=== PATIENT | female | born 1945 | race Caucasian/White ===

== ENCOUNTER 2016-10-28 11:39 | Outpatient (CLI) | payer MEDICARE, OTHER | END 2016-10-28 11:40 | disposition home or self-care (01) | DX: M50.31 Other cervical disc degeneration, high cervical region (principal); M47.892 Other spondylosis, cervical region; M51.34 Other intervertebral disc degeneration, thoracic region ==

== ENCOUNTER 2017-04-18 10:13 | Outpatient (CLI) | payer MEDICARE, OTHER ==
--- NOTE | 2017-04-19 13:11 | Mammography Report ---
DIGITAL SCREENING MAMMOGRAM: 04/18/2017 CLINICAL INDICATION: A 71-year-old with personal history of right breast cancer status post mastecto my, chemoradiation, and TRAM flap reconstruction, history of benign left breast biopsy. COMPARISON: 05/2015, 05/2014, 05/2013, 03/2012. TECHNIQUE: Routine CC and MLO projections were obtained of the breasts. FINDINGS: Postoperative changes of right mastectomy and TRAM flap reconstruction are stable. The le ft breast demonstrates scattered fibroglandular densities. Postbiopsy changes are stable. No suspic ious masses, clustered microcalcifications, or regions of architectural distortion are identified. IMPRESSION: BENIGN FINDINGS. RECOMMENDATION: Routine annual screening unless otherwise clinically indicated. BI-RADS category 2, benign findings. STANDARD QUALIFYING STATEMENTS 1. This examination was reviewed with the aid of Computer-Aided Detection (CAD). 2. A negative or benign imaging report should not delay biopsy if clinically suspicious findings are present. Consider surgical consultation if warranted. More than 5% of cancers are not identified by i maging. 3. Dense breasts may obscure an underlying neoplasm. JOB #: [id number] EXT JOB #:[id number]
== END 2017-04-18 10:14 | disposition home or self-care (01) ==
LOC: DI 10:13
PROVIDERS: ATTEND Physician Assistant
DX: Z12.31 Encounter for screening mammogram for malignant neoplasm of breast (principal); Z90.11 Acquired absence of right breast and nipple
CPT/HCPCS: 77067

== ENCOUNTER 2020-01-02 13:33 | Outpatient (CLI) | payer MEDICARE, OTHER ==
--- NOTE | 2020-01-03 09:50 | Mammography Report ---
BILATERAL DIGITAL SCREENING MAMMOGRAM 3D/2D: 01/02/2020 CLINICAL: Routine screening. Personal history of bilateral breast cancer. Comparison is made to exams dated: 04/18/2017 mammogram, 05/27/2015 mammogram, and 06/19/2014 mammogra m - [facility]. The tissue of both breasts is predominantly fatty. There is a benign post surgical scar in both breasts. There is a focal asymmetry in the right breast at 12 o'clock posterior depth. No other significant masses, calcifications, or other findings are seen in either breast. IMPRESSION: INCOMPLETE: NEEDS ADDITIONAL IMAGING EVALUATION The focal asymmetry in the right breast is indeterminate. Additional views with possible ultrasound are recommended. This exam was interpreted at Station ID: [id number]. NOTE: For mammograms, a report in lay terms will be sent to the patient. Approximately 15% of breast malignancies will not be visualized mammographically. In the management of a palpable breast mass, a negative mammogram must not discourage biopsy of a clinically suspicious lesion. Electronically Signed By: Mary Teran M.D. lk/:01/02/2020 15:10:47 ACR BI-RADS Category 0: Incomplete 3340F PARENCHYMAL PATTERN: (F) - The breast(s) demonstrate(s) diffuse fatty replacement. BI-RADS CATEGORY: (0) - 0 Mammo and [place] [id number] Immediate follow-up LATERALITY: (B)
== END 2020-01-02 13:34 | disposition home or self-care (01) ==
LOC: DI 13:33
PROVIDERS: ATTEND Physician Assistant
DX: R92.8 Other abnormal and inconclusive findings on diagnostic imaging of breast (principal); Z85.3 Personal history of malignant neoplasm of breast
CPT/HCPCS: 77063; 77067

== ENCOUNTER 2020-03-21 11:22 | Day surgery (SDC) | payer MEDICARE, OTHER ==
[2020-03-21] MEDS ORDERED: LACTATED RINGERS 1,000 ML IV ONE ×2 (11:27→14:31)
[2020-03-21] MEDS ORDERED: fentaNYL 250 MCG/5 ML VIAL IVP ONE (13:19)
[2020-03-21] MEDS ORDERED: MIDAZOLAM 2 MG/2 ML VIAL IVP ONE (13:19)
[2020-03-21 15:22] VITALS: BP 118/60
== END 2020-03-21 11:23 | disposition home or self-care (01) ==
LOC: SDS 11:22
PROVIDERS: ATTEND Surgery
PROC: 0DBM8ZZ Excision of Descending Colon, Via Natural or Artificial Opening Endoscopic (ICD-10-PCS; principal; 2020-03-21 12:30)
DX: Z12.11 Encounter for screening for malignant neoplasm of colon (principal); K63.89 Other specified diseases of intestine
CPT/HCPCS: 45380; J3010; J7120

== ENCOUNTER 2021-11-02 10:52 | Outpatient (CLI) | payer MEDICARE, OTHER ==
[2021-11-02 14:46] LABS: BASOPHILS # (AUTO) 0.1 10^3/uL (0.0-0.1); BASOPHILS % (AUTO) 0.6 %; EOSINOPHILS # (AUTO) 0.2 10^3/uL (0.0-0.7); HGB - HEMOGLOBIN 13.5 g/dL (12.0-16.0); LYMPHOCYTES # (AUTO) 1.7 10^3/uL (1.5-3.5); LYMPHOCYTES % (AUTO) 21.3 %; MEAN CORPUSCULAR HEMOGLOBIN 32.1 pg (27.0-31.0); MEAN CORPUSCULAR HGB CONC 32.1 g/dL (32.0-36.0); MEAN PLATELET VOLUME 11.8 fL (7.9-10.8); MONOCYTES # (AUTO) 0.5 10^3/uL (0.0-1.0); MONOCYTES % (AUTO) 5.8 %; NEUTROPHILS # (AUTO) 5.6 10^3/uL (1.5-6.6); NEUTROPHILS % (AUTO) 70.1 %; PLT - PLATELET COUNT 282 10^3/uL (130-450); RED CELL DISTRIBUTION WIDTH 14.5 % (12.0-15.0)
[2021-11-02 15:02] LABS: ALBUMIN 4.4 g/dL (3.2-5.5); ALBUMIN/GLOBULIN RATIO 1.4 (1.0-2.2); ALKALINE PHOSPHATASE 39 IU/L (42-121); ALT ALANINE AMINOTRANSFERASE 17 IU/L (10-60); AST ASPARTATE AMINOTRANSFERASE 21 IU/L (10-42); BILIRUBIN,TOTAL 1.1 mg/dL (0.2-1.0); BUN - BLOOD UREA NITROGEN 16 mg/dL (6-20); CALCIUM 9.3 mg/dL (8.5-10.3); CARBON DIOXIDE - CO2 26 mmol/L (21-32); CHLORIDE 105 mmol/L (101-111); CHOL/HDL RATIO 3.5 (<4.4); CHOLESTEROL 169 mg/dL; CREATININE 0.8 mg/dL (0.4-1.0); GFR - MDRD 70 (>89); GLUCOSE 90 mg/dL (70-100); HDL CHOLESTEROL 48 mg/dL; LDL CHOLESTEROL,CALCULATED 88 mg/dL; LDL/HDL RATIO 1.8 (<4.4); POTASSIUM 4.2 mmol/L (3.5-5.0); SODIUM 141 mmol/L (135-145); TOTAL PROTEIN 7.6 g/dL (6.7-8.2); TRIGLYCERIDES 163 mg/dL; VLDL CHOLESTEROL 33 mg/dL
== END 2021-11-02 10:53 | disposition home or self-care (01) ==
LOC: LAB.S 10:52
PROVIDERS: ATTEND Physician Assistant
DX: Z00.00 Encounter for general adult medical examination without abnormal findings (principal); M85.80 Other specified disorders of bone density and structure, unspecified site; Z13.1 Encounter for screening for diabetes mellitus; Z13.220 Encounter for screening for lipoid disorders
CPT/HCPCS: 36415; 80053; 80061; 82306; 83721; 85025

== ENCOUNTER 2022-11-18 14:10 | Outpatient (CLI) | payer MEDICARE ==
--- NOTE | 2022-11-18 15:03 | DEXA Report ---
PROCEDURE: Dexa Spine and/or Hip INDICATIONS: OSTEOPENIA TECHNIQUE: Dual energy x-ray absorptiometry (DXA) was performed on a [employer]. Regions measur ed are the AP Spine, femoral neck, and if needed forearm. COMPARISON: None. FINDINGS: Lumbar Spine: Bone Mineral Density 0.907 g/cm/cm,T score -2.3, osteopenia. Left Femoral Neck: Bone Mineral Density 0.843 g/cm/cm, T score -1.4, osteopenia. Left Hip: Bone Mineral Density 0.982 g/cm/cm,T score -0.2, normal. (T score greater or equal to -1.0: NORMAL) (T score from -1.1 to -2.4: OSTEOPENIA) (T score less than or equal to -2.5 to: OSTEOPOROSIS) Impression: Osteopenia. Patients with diagnosis of osteoporosis or osteopenia should have regular bone mineral density assess ment. For those eligible for Medicare, routine testing is allowed once every 2 years. Testing frequ ency can be increased for patients who have rapidly progressing disease or for those who are receivin g medical therapy to restore bone mass. Reviewed by: Jac Celis on 11/18/2022 3:02 PM PDT Approved by: Jac Celis on 11/18/2022 3:02 PM PDT Station ID: [id number]
== END 2022-11-18 14:11 | disposition home or self-care (01) ==
LOC: DI 14:10
PROVIDERS: ATTEND Nurse Practitioner Family
DX: M85.89 Other specified disorders of bone density and structure, multiple sites (principal)

== ENCOUNTER 2023-06-28 12:33 | Outpatient (CLI) | payer MEDICARE ==
[2023-06-28 14:47] LABS: ALBUMIN 4.4 g/dL (3.2-5.5); ALBUMIN/GLOBULIN RATIO 1.7 (1.0-2.2); BILIRUBIN,TOTAL 0.9 mg/dL (0.2-1.0); POTASSIUM 4.9 mmol/L (3.5-4.5)
== END 2023-06-28 12:34 | disposition home or self-care (01) ==
LOC: LAB.S 12:33
PROVIDERS: ATTEND Nurse Practitioner Family
DX: R19.00 Intra-abdominal and pelvic swelling, mass and lump, unspecified site (principal)
CPT/HCPCS: 36415; 80053

== ENCOUNTER 2023-07-05 08:07 | Outpatient (CLI) | payer MEDICARE ==
[2023-07-05] MEDS ORDERED: DIATR MEGLU/DIATRIZOATE SODIUM 120 ML BOTTLE ONE (08:12)
[2023-07-05] MEDS ORDERED: DIATRIZOATE MEGLU/DIATRIZO SOD 30 ML BOTTLE PO ONE (09:41)
[2023-07-05] MEDS ORDERED: iohexoL-300 100 ML VIAL IVP ONE (09:41)
--- NOTE | 2023-07-05 11:06 | CT Report ---
PROCEDURE: ABDOMEN/PELVIS W INDICATIONS: ABD MASS, HERNIA CONTRAST: 100ml omni 300 TECHNIQUE: After the administration of IV and oral contrast, 5 mm thick sections acquired from the diaphragms to the symphysis. 5 mm thick coronal and sagittal reformats were acquired. For radiation dose reducti on, the following was used: automated exposure control, adjustment of mA and/or kV according to chloe ent size. COMPARISON: None FINDINGS: Image quality: Good Lower chest: Lung bases appear unremarkable. No pleural effusions. Suspected basal atelectasis. Suspe cted bilateral small Bochdalek's hernias. No hiatal hernia. Normal heart size. Solid organs: Possible hepatic steatosis. Cholelithiasis. No suspicious pancreatic or biliary ductal dilation. A small duodenal diverticulum is seen adjacent to the ampulla. No splenomegaly. Right adren al thickening versus small nodule. A left adrenal nodule is seen measuring up to 2 cm. No suspicious renal lesions or hydronephrosis. Vessels and lymph nodes: The main portal vein appears patent. No suspicious abdominal or pelvic lymph adenopathy by size criteria. No abdominal aortic aneurysm. There are atherosclerotic calcifications. Bowel and peritoneum: No evidence of small bowel obstruction. No pathologic ascites. There are coloni c diverticula, without evidence of acute inflammation by CT. The appendix is is mildly dilated at 8 t o 9 mm (5/31). There is minimal questionable surrounding fat stranding. No abscess. Body wall: In the upper midline abdominal wall, there is a fat-containing ventral hernia with neck me asuring 1 cm, and an internal calcification. Another small fat-containing umbilical hernia is suspect ed to be present. Pelvis: Bladder is unremarkable. Reproductive organs are not well evaluated on this study, overall un remarkable. Bones: There are degenerative changes, no acute or suspicious findings. Vertebral suspected hemangiom a. L5 pars defects, chronic appearing, with anterolisthesis. IMPRESSION: Right lower quadrant minimal fat stranding and mildly dilated appendix. Please correlate for any righ t lower quadrant pain. This could represent acute appendicitis without abscess. Ventral hernias as described above, the upper abdominal hernia contains fat and a small calcification . Consider correlation with ultrasound for dynamic assessment if indicated. No bowel obstruction. Other findings as above. Reviewed by: Javon Napoles MD on 07/05/2023 11:04 AM PST Approved by: Javon Napoles MD on 07/05/2023 11:04 AM PST Station ID: [id number]
== END 2023-07-05 08:08 | disposition home or self-care (01) ==
LOC: DI 08:07
PROVIDERS: ATTEND Nurse Practitioner Family
DX: K38.8 Other specified diseases of appendix (principal); K43.9 Ventral hernia without obstruction or gangrene
CPT/HCPCS: 74177; Q9963; Q9967

== ENCOUNTER 2023-09-08 09:12 | Day surgery (SDC) | payer MEDICARE ==
[2023-09-08] MEDS ORDERED: ceFAZolin 2 GM VIAL ONE (09:21)
[2023-09-08] MEDS ORDERED: metroNIDAZOLE 500 MG/100 ML 500 MG/100 ML BAG ONE (09:21)
[2023-09-08] MEDS: LACTATED RINGERS 1,000 ML IV ONE (09:21)
[2023-09-08] MEDS ORDERED: BUPIVACAINE 0.25% PF 30 ML VIAL ONE (10:01)
[2023-09-08] MEDS ORDERED: PROPOFOL 200 MG/20 ML VIAL IVP ONE (10:29)
[2023-09-08] MEDS ORDERED: fentaNYL 100 MCG/2 ML VIAL ONE (10:31)
[2023-09-08] MEDS ORDERED: ONDANSETRON 4 MG/2 ML VIAL ONE (10:31)
[2023-09-08] MEDS ORDERED: ROCURONIUM 50 MG/5 ML VIAL ONE (10:31)
[2023-09-08] MEDS ORDERED: LIDOCAINE-PF 2% 10 ML AMP SUBQ ONE (10:31)
--- NOTE | 2023-09-08 10:34 | HISTORY & PHYSICAL EXAMINATION ---
Chief Complaint - Chief Complaint Chief Complaint: here for appendectomy History of Present Illness - History Obtained From History obtained from: pt Exam Limitations: none - History of Present Illness HPI Comment/Other: abnormal appendix on ct. history abdominal pain few months ago. doing well now. 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, Mastectomy Derm: reports: Skin cancer surgery, Other Meds/Allgy - Home Medications Home Medications: Ambulatory Orders Medication Instructions Recorded Confirmed Anastrozole 1 mg PO DAILY #90 tablet 06/22/23 09/05/23 - Allergies Allergies/Adverse Reactions: Allergies Allergy/AdvReac Type Severity Reaction Status Date / Time No Known Drug Allergies Allergy Verified 09/08/23 08:01 Review of Systems - Other Findings Other Findings: 10 pt ros as above otherwise unremarkable Exam - Vital Signs Vital Signs: Vital Signs x48h Temp Pulse Resp BP Pulse Ox 09/08/23 09:28 36.0 C L 55 L 16 147/72 H 100 - Physical Exam General Appearance: positive: No acute distress, Alert Eyes Bilateral: positive: Normal inspection, PERRL ENT: positive: No signs of dehydration Neck: positive: No JVD, Trachea midline Respiratory: positive: No respiratory distress Cardiovascular: positive: Regular rate & rhythm Abdomen: positive: Non-tender, No distention Neurologic/Psychiatric: positive: Oriented x3 Conclusion/Plan - Problem List (1) Appendix disease Conclusion/Plan: abnormal appendix on ct. plan appendectomy. parq held and consent obtained
[2023-09-08] MEDS ORDERED: ePHEDrine 50 MG/ML VIAL IVP PRN (10:46)
[2023-09-08] MEDS ORDERED: HYDROmorphone 0.5 MG/0.5 ML SYRINGE IVP PRN ×2 (10:46→12:39)
[2023-09-08] MEDS ORDERED: METOCLOPRAMIDE 10 MG/2 ML VIAL IVP PRN (10:46)
[2023-09-08] MEDS ORDERED: ONDANSETRON 4 MG/2 ML VIAL IVP PRN ×2 (10:46→12:39)
[2023-09-08] MEDS ORDERED: NALOXONE 0.4 MG/ML VIAL IVP PRN (10:46)
[2023-09-08] MEDS ORDERED: MORPHINE 2 MG/ML CARPUJECT IVP PRN (10:46)
[2023-09-08] MEDS ORDERED: ATROPINE ABBOJECT 1 MG/10 ML SYRINGE IVP PRN (10:46)
[2023-09-08] MEDS ORDERED: fentaNYL 100 MCG/2 ML VIAL IVP PRN (10:46)
--- NOTE | 2023-09-08 10:46 | ANESTHESIA ---
Pre-Anesthesia VS, & Labs - Diagnosis abnormal appendix - Procedure lap appy Vital Signs: Temp Pulse Resp BP Pulse Ox O2 Flow Rate 36.0 C L 55 L 16 147/72 H 100 09/08/23 09:28 09/08/23 09:28 09/08/23 09:28 09/08/23 09:28 09/08/23 09:28 Height: 5 ft 6 in Weight (kg): 86 kg Body Mass Index: 30.6 BMI Classification: Obese - NPO >8 hours - Is Patient ?: No Home Medications and Allergies Allergies/Adverse Reactions: Allergies Allergy/AdvReac Type Severity Reaction Status Date / Time No Known Drug Allergies Allergy Verified 09/08/23 08:01 Anes History & Medical History - Anesthetic History Anesthesia Complications: reports: No previous complications Family history of Anesthesia Complications: Denies Family history of Malignant Hyperthermia: Denies - Medical History Cardiovascular: reports: None Pulmonary: reports: None Gastrointestinal: reports: None Urinary: reports: None Neuro: reports: None Musculoskeletal: reports: None Endocrine/Autoimmune: reports: None Skin: reports: None Smoking Status: Never smoker Psychosocial: reports: No issues indicated History of Cancer?: Yes (breast, skin) - Surgical History Gynecologic: reports: section, Mastectomy Dermatologic: reports: Skin cancer surgery, Other Exam General: Alert, Oriented x3, Cooperative Dental: WNL Mouth Openin Fingerbreadth Neck Mobility: Normal Mallampati classification: II Thyromental Distance: 4-6 cm Respiratory: Lungs clear Cardiovascular: Regular rate Plan Anesthesia Type: General Consent for Procedure(s) Verified and Reviewed: Yes Code Status: Attempt Resuscitation ASA classification: 2-Mild systemic disease Is this case an emergency?: No
[2023-09-08] MEDS ORDERED: MIDAZOLAM 2 MG/2 ML VIAL ONE (10:48)
[2023-09-08] MEDS ORDERED: LACTATED RINGERS 1,000 ML IV SCH (11:00)
[2023-09-08] MEDS ORDERED: SUGAMMADEX 200 MG/2 ML VIAL IVP ONE (12:17)
[2023-09-08] MEDS: BUPIVACAINE 0.25% PF 30 ML VIAL SUBQ ONE (12:23)
[2023-09-08] MEDS: LACTATED RINGERS 800 ML IV ONE ×2 (12:28→13:00)
--- NOTE | 2023-09-08 12:53 | OPERATIVE REPORT ---
Operative Report - General Procedure Date: 09/08/23 Planned Procedure: lap appendectomy Pre-Op Diagnosis: abnormal thickened appendix on ct scan Procedure Performed: lap appendectomy Post Op Diagnosis: same - Procedure Note Primary Surgeon: yessica singletary Anesthesia Technique: General ET tube, Local Pathology: appendix Estimated Blood Loss (mL): 5 Drain/Tube Type: Other (none) Indications: history abdominal pain and abnormal appendix on ct Findings: thickened and contracted appendix Complications: none - Other Other Information/Narrative: The patient was properly identified brought to the operating room and placed in supine position. Sequential compression devices were placed. General endotracheal anesthesia was induced. He was prepped and draped in a sterile fashion and given preoperative antibiotics. Local anesthetic was given to incision areas. An infraumbilical incision was made. Dissection proceeded down to the fascia. Fascia was incised lifted upwards and abdomen entered with a Veress needle. CO2 was insufflated to a pressure of 15. A 12 mm trocar with 30 degree scope was placed. There was no evidence of injury from Veress needle or trocar placement. Under direct vision a 5 mm trocar was placed suprapubic and a 5 mm trocar was placed in the right upper quadrant. The appendix was partially retrocecal. Appendix was densely adherent to the posterior lateral side of the cecum. A plane was created at the base of the appendix and the mesoappendix and the cecum. The appendix was divided with an Endo BAYLEE intestinal load. The mesoappendix and lateral peritoneal attachments were mobilized using hook cautery and/or [place] dissector. Appendix was gently mobilized further away from the cecum and the right colon. The mesoappendix was then divided with 2 loads of the Endo BAYLEE vascular. Hemostasis was assured. The appendix and mesoappendix was placed in an Endo Catch bag and brought out. Abdomen is thoroughly irrigated. There was no evidence of injury or complication. Trocars were removed under direct vision and CO2 evacuated. Fascia at the infraumbilical site was closed with a running 0 Vicryl suture. Skin was closed with buried interrupted or running 4-0 Monocryl. Dressings were applied. She tolerated the procedure well was awakened and brought to recovery in good condition.
[2023-09-08 13:40] VITALS: BP 161/88; O2SAT 97
--- NOTE | 2023-09-08 16:41 | ANESTHESIA POST OP EVALUATION ---
Anesthesia Post Eval - Post Anesthesia Eval Vitals: Last Vital Signs Temp 36.4 C L 09/08/23 13:30 Pulse 65 09/08/23 13:30 Resp 16 09/08/23 13:30 BP 161/88 H 09/08/23 13:30 Pulse Ox 97 09/08/23 13:30 O2 Flow Rate CV Function Including HR & BP: Stable Pain Control: Satisfactory Nausea & Vomiting: Negative Mental Status: Baseline Respiratory Status: Airway Patent Hydration Status: Satisfactory Anesthesia Complications: None
== END 2023-09-08 09:13 | disposition home or self-care (01) ==
LOC: SDS 09:12
PROVIDERS: ATTEND Surgery
PROC: 0DTJ4ZZ Resection of Appendix, Percutaneous Endoscopic Approach (ICD-10-PCS; principal; 2023-09-08 11:00)
DX: K38.9 Disease of appendix, unspecified (principal); E66.9 Obesity, unspecified; Z68.30 Body mass index [BMI] 30.0-30.9, adult
CPT/HCPCS: 44970; J7120

== ENCOUNTER 2024-02-19 14:45 | Outpatient (CLI) | payer MEDICARE ==
--- NOTE | 2024-02-19 18:09 | Ultrasound Report ---
PROCEDURE: Carotid Doppler Complete INDICATIONS: LIGHTHEADEDNESS TECHNIQUE: Color and pulse Doppler interrogation was performed of both carotid systems, with image documentation and velocity measurements. COMPARISON: None. FINDINGS: Right side: Brachial blood pressure: 144/59 mm Hg. Common carotid artery peak systolic velocity: 70 cm/sec. Internal carotid artery peak systolic velocity: 119 cm/sec. Internal carotid artery end diastolic velocity: 37 cm/sec. External carotid artery peak systolic velocity: 180 cm/sec. ICA/CCA peak systolic ratio: 1.5 . Plunkett scale imaging description: No visualized Percent internal carotid artery stenosis: Less than 50%. Vertebral artery: Flow direction is antegrade. Left side: Brachial blood pressure: 132/60 mm Hg. Common carotid artery peak systolic velocity: 94 cm/sec. Internal carotid artery peak systolic velocity: 101 cm/sec. Internal carotid artery end diastolic velocity: 33 cm/sec. External carotid artery peak systolic velocity: 117 cm/sec. ICA/CCA peak systolic ratio: 1 . Plunkett scale imaging description: No significant atherosclerotic plaque. Percent internal carotid artery stenosis: Less than 50%. Vertebral artery: Flow direction is antegrade. IMPRESSION: 1. In the right internal carotid artery, there is less than 50% based on peak systolic velocity crite po. 2. In the left internal carotid artery, there is less than 50% based on peak systolic velocity criter ia. 3. Antegrade blood flow within the right vertebral artery. 4. Antegrade blood flow within the left vertebral artery. The estimate of stenosis included in the report of the imaging study was calculated using the [facility]-end orsed standards of carotid artery stenosis. Reviewed by: Janice Sherwood MD on 02/19/2024 6:07 PM PDT Approved by: Janice Sherwood MD on 02/19/2024 6:07 PM PDT Station ID: [id number]
--- NOTE | 2024-02-20 13:46 | Ultrasound Report ---
PROCEDURE: Abdomen Limited INDICATIONS: HERNIA, LIGHTHEADEDNESS TECHNIQUE: Real-time focused scanning was performed of the abdomen, with image documentation. COMPARISONS: CT 07/05/2023 FINDINGS: Upper, midline ventral hernia containing fat. The neck measures 1.7 cm and the sac measures 2.5 x 1.1 cm. Tiny umbilical hernia containing fat. IMPRESSION: Small, midline ventral hernia containing fat. Reviewed by: Jac Celis MD on 02/20/2024 1:45 PM PDT Approved by: Jac Celis MD on 02/20/2024 1:45 PM PDT Station ID: [id number]
== END 2024-02-19 14:46 | disposition home or self-care (01) ==
LOC: DI 14:45
PROVIDERS: ATTEND Nurse Practitioner Family
DX: K43.9 Ventral hernia without obstruction or gangrene (principal); R42 Dizziness and giddiness
CPT/HCPCS: 93880